=== PATIENT | male | born 1935 | race Caucasian/White ===

== ENCOUNTER → 2019-09-04 | Outpatient (CLI) | payer MEDICARE ==
[~2019-09-04] VITALS: Ht 180.3 cm; Wt 82.2 kg
[2019-09-04] VITALS (15 sets, daily range): BP systolic 113–162; BP diastolic 62–88; PULSE 70–93
[~2019-09-04] MED LIST: ASPI81EC86; ASPIRIN 81M81 MG/TA2 PO; ATOXIMETIN-B1 CAP PO; BENICAR HCT 251 TAB PO; BENICAR40 MG PO; CIPRO 500MG TA500 MG PO; FLOMAX 0.40.4 MG/CAP PO; FLOMAX0.4 MG PO; LIPITOR20 MG PO; LUTEIN20 M1 PO; ONE-A-DAY ESSE1 EACH PO; PRESERVISION1 SGL PO; PROSCAR 5MG5 MG PO; SYNTHROID0.125 MG PO; TIROSINT100 MC1 PO
== END ==
LOC: COL.RAD 08:43
DX: N28.89 Other specified disorders of kidney and ureter (principal)
CPT/HCPCS: 27433

== ENCOUNTER 2020-02-15 12:56 | Day surgery (SDC) | payer MEDICARE ==
[~2020-02-15] VITALS: Ht 180.3 cm; Wt 81.4 kg
[2020-02-15] VITALS (11 sets, daily range): BP systolic 91–129; BP diastolic 40–92; PULSE 54–111; TEMP 97.3–97.8
[2020-02-15] MEDS ORDERED: PREDNISONE10 MG PO (14:22)
[2020-02-15] MEDS ORDERED: COLACE LIQUI10 MG/ML PO (14:24)
[2020-02-15] MEDS ORDERED: PYRIDIUM 100MG100 MG PO (15:39)
--- NOTE | 2020-02-15 18:11 | NUR ---
PT TRANSFERRED FROM OR VIA BED TO ROOM 327 AROUND 1640. PT DENIED PAIN AT THIS TIME. BLADDER IRRIGATION LIGHT PINK AT THIS TIME. PT TOLERATING PO WATER WELL, WILL ADVANCE TO REGULAR DIET WITH DINNER TO SEE HOW HE TOLERATES. CBI RATE DECRASED WHEN ARRIVED DUE TO COLOR. INCREASED SLIGHTLY AFTER ALEX RED OUTPUT. PT GETTING FEELING BACK BUT NO PAIN. MILD AMOUNT OF DRAINAGE FROM PENIS, ALEX RED, ABD PAD TO CATCH.
--- NOTE | 2020-02-15 21:27 | NUR ---
Medicated with Tylenol 650mg po for penis discomfort, also takes HS meds. Hand irrigated catheter as pt was complaining of feeling like he needed to pee. No clots returned. CBI continues, urine is pink.
[2020-02-16 00:16] VITALS: BP 124/55; PULSE 55; TEMP 97.5
--- NOTE | 2020-02-16 00:59 | NUR ---
HAND IRRIGATED CATHETER FOR RETURN OF NUMEROUS SMALL CLOTS. PLACED LINSEY RAG AT INSERTION SITE OF CATHETER. WILL MONITOR FOR CHANGES.
--- NOTE | 2020-02-16 03:30 | NUR ---
PT REPORTS NOT SLEEPING WELL. DENIES FEELING OF NEEDING TO URINATE AT THIS TIME. LINSEY RAG IS DRY. URINE IS PINK IN URBI TUBING. WILL MONITOR FOR CHANGES.
[2020-02-16 05:01] VITALS: BP 128/60; PULSE 60; TEMP 97.8
[2020-02-16 08:00] VITALS: BP 122/51; PULSE 84; TEMP 97.7
--- NOTE | 2020-02-16 08:00 | NUR ---
Patient in bed resting. Alert and oriented x 3. Assessment complete. Denies pain at this time. Alvarado to DD with CBI infusing at slow rate. With clear pink urine present. Denies further needs at this time.
[2020-02-16 11:16] VITALS: BP 121/58; PULSE 73; TEMP 97.8
--- NOTE | 2020-02-16 11:49 | NUR ---
SW met with patient to complete intake. Patient states that he lives alone in his [facility], recently early January. Patient states that it is documented in paperwork at home that his son Timothy is his DPOA-HC. Patient states that he does not utilize any DME at this time and is independent with ADL's. Patient states that his PCP is Dr. Mobley, pharmacy is [facility], and states he is able to afford his medications at this time. Patient provides that his plan to go back to his home upon DC and has no problem with doing so when the time comes. Patient states that he does not currently utilize any home health services at this time. SW will continue to follow.
[2020-02-16 15:36] VITALS: BP 115/65; PULSE 83; TEMP 98.5
--- NOTE | 2020-02-16 18:58 | NUR ---
Patient has done well throughout the day. CBI clamped at this time. Alvarado to DD with clear pink urine present. Denies pain at this time. Denies further needs at this time. 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
--- NOTE | 2020-02-16 20:40 | NUR ---
MEDICATED PT WITH TYLENOL 650MG PO FOR HEADACHE. TAKES OTHER HS MEDS. IS ALERT AND ORIENTED X4. WEARING HEARING AIDES IN BOTH EARS. HAS RUBI WITH CLAMPED CBI, URINE IS PINK IN TUBING. HAS SL TO LEFT WRIST WITHOUT REDNESS OR SWELLING. DID INFORM PT THIS NURSE WOULD BE REMOVING HIS CATHETER IN THE AM. VERBALIZES UNDERSTANDING.
[2020-02-16 20:44] VITALS: BP 131/71; PULSE 105; TEMP 98
--- NOTE | 2020-02-16 20:50 | NUR ---
UPDATED PTS SON BRET ON PTS CONDITION AND POTENTIAL DISCHARGE TOMORROW.
[2020-02-17 00:02] VITALS: BP 133/64; PULSE 97; TEMP 98.8
[2020-02-17 04:00] VITALS: BP 125/64; PULSE 92; TEMP 97.8
--- NOTE | 2020-02-17 04:15 | NUR ---
PT AWAKE. WANTS CATHETER REMOVED. CLAMPED CATHETER, PLACED 250CC NS IN BLADDER. DEFLATED BALLOON (35CC) AND REMOVED CATHETER WITHOUT PROBLEM. PT TOLERATED WELL. INSTRUCTED ON USE OF URINAL, VERBALIZED UNDERSTANDING.
[2020-02-17 07:47] VITALS: BP 128/69; PULSE 95; TEMP 98.1
--- NOTE | 2020-02-17 08:00 | NUR ---
Patient in bed resting. Alert and oriented x 3. Assessement complete. Encouraged increased fluid intake, patient states he does not feel like he needs to void yet. Encouraged patient to ambulate in halls. Denies needs at this time.
--- NOTE | 2020-02-17 11:13 | NUR ---
Left message for Dr. Laws patient was able to void 10 ml of urine. Bladder scanned for 375 mls.
[2020-02-17 11:54] VITALS: BP 124/66; PULSE 88; TEMP 97.9
[2020-02-17 15:09] VITALS: BP 120/90; PULSE 104; TEMP 97.4
--- NOTE | 2020-02-17 15:44 | NUR ---
Discharge education provided to patient. Educated on increasing fluid intake and when to call provier. Patient has been voiding without difficulties. Voiding clear light red tinged urine. Educated on when to call provider and scheduling follow appointment. INT discontinued, catheter tip intact. Denies further needs at this time. Patient ambulated out with surgical staff.
== END 2020-02-17 15:50 | disposition home or self-care (01) ==
LOC: INPTSU 12:56 → SURG 12:56 → SDCO 12:56 → EDSTATUS 14:15 → SURG 14:15 → JCC 16:42 → INPTSU 16:42 → JCC 16:42 → SDCO 02-17 15:50 → JCC 02-17 15:50
DX: N40.1 Benign prostatic hyperplasia with lower urinary tract symptoms (principal); R33.8 Other retention of urine; R35.1 Nocturia; R39.12 Poor urinary stream; C67.1 Malignant neoplasm of dome of bladder; C61 Malignant neoplasm of prostate; D30.01 Benign neoplasm of right kidney; E89.0 Postprocedural hypothyroidism; I10 Essential (primary) hypertension; Z20.828 Contact with and (suspected) exposure to other viral communicable diseases; E78.5 Hyperlipidemia, unspecified; R06.00 Dyspnea, unspecified; N52.9 Male erectile dysfunction, unspecified; Z85.850 Personal history of malignant neoplasm of thyroid; Z79.890 Hormone replacement therapy; Z79.899 Other long term (current) drug therapy; Z79.82 Long term (current) use of aspirin; Z87.891 Personal history of nicotine dependence
CPT/HCPCS: J0690; J2250; J2370; J2704; J3480; J7120; J7512

== ENCOUNTER → 2020-02-19 | Outpatient (CLI) | payer MEDICARE ==
[~2020-02-19] MED LIST changes: +COLACE LIQUI10 MG/ML PO; +PREDNISONE10 MG PO; +PYRIDIUM 100MG100 MG PO
== END ==
LOC: COL.RAD 09:22
DX: C67.1 Malignant neoplasm of dome of bladder (principal); N28.1 Cyst of kidney, acquired; R93.422 Abnormal radiologic findings on diagnostic imaging of left kidney; Z90.79 Acquired absence of other genital organ(s)